=== PATIENT | female | born 1955 | race Caucasian/White ===

== ENCOUNTER 2019-05-19 08:28 | Day surgery (SDC) | payer OTHER ==
[2019-05-18 11:39] VITALS: BMI 44.9
--- NOTE | 2019-05-18 21:12 | HP ---
HISTORY OF PRESENT ILLNESS: This is a 64-year-old female, comes for colonoscopy for colon cancer screening. The patient's bowel movements are regular. No history of abdominal pain. No rectal bleeding. The patient has history of chronic acid reflux and has good symptom control with Nexium and also Zantac. The patient comes for a colonoscopy for colon cancer screening. ALLERGIES: NSAID MEDICATION. SOCIAL HISTORY: The patient quit smoking 5 years ago. Does not drink alcohol. MEDICAL ILLNESSES: 1. Obesity. 2. Cataracts. 3. Glaucoma surgery. 4. Hypothyroidism. 5. Colon polyp. 6. Chronic acid reflux. 7. Depression, anxiety. 8. ADHD. PHYSICAL EXAMINATION: VITAL SIGNS: Pulse is 73, blood pressure 130/80. EYES: Conjunctivae clear. CARDIOVASCULAR: First and second heart sounds are normal. LUNGS: Clear to auscultation. ABDOMEN: Soft. No organomegaly. No tenderness. No masses. EXTREMITIES: Reveal no edema. ADMITTING DIAGNOSIS: A 64-year-old female comes for a colonoscopy for colon cancer screening. Job ID: [id number]
--- NOTE | 2019-05-19 14:53 | OP ---
DATE OF PROCEDURE: 05/19/2019 PROCEDURE PERFORMED: Colonoscopy. PREOPERATIVE DIAGNOSIS: This is a 64-year-old female undergoing colonoscopy for colon cancer screening. POSTOPERATIVE DIAGNOSES: 1. Sigmoid diverticular disease. 2. Diverticula over the ascending colon close to cecum. DESCRIPTION OF PROCEDURE: The patient was placed on her left lateral position and was given sedation by Anesthesia Department. A rectal exam was done before the scope was advanced into the rectum. No lesions felt on rectal exam. A Pentax video colonoscope was introduced into the rectum and advanced all the way into the cecum. The patient had large amount of bilious material, which was frothy and seen mostly on the transverse colon, ascending colon area. Water was irrigated and washed out. Also, Mylicon was added to the irrigant solution because of large amount of frothy material. The mucosa appears normal throughout the colon. The appendiceal orifice, ileocecal wall, and cecum, no pathology seen. The patient had few diverticula over the cecal area. The ascending colon, hepatic flexure, no pathology seen. The transverse colon, splenic flexure, descending colon, no lesion. The sigmoid colon showed scattered diverticular disease. Retroflexion of scope in the rectum showed no pathology. DISCHARGE PLANNING: This is a 64-year-old female came for colonoscopy for colon cancer screening. She underwent colonoscopy and was found to have scattered sigmoid diverticular disease and also some diverticula over the ascending colon area. DISCHARGE RECOMMENDATIONS: 1. The patient advised to call me if she develops abdominal pain, hematochezia. 2. High-fiber diet. 3. Metamucil. 4. Repeat colonoscopy in 5 years. Job ID: [id number]
== END 2019-05-19 11:55 | disposition home or self-care (01) ==
LOC: SDC 08:28
PROVIDERS: ATTEND Internal Medicine Gastroenterology
PROC: 0DJD8ZZ Inspection of Lower Intestinal Tract, Via Natural or Artificial Opening Endoscopic (ICD-10-PCS; principal; 2019-05-19)
DX: Z12.11 Encounter for screening for malignant neoplasm of colon (principal); K57.30 Diverticulosis of large intestine without perforation or abscess without bleeding; E66.9 Obesity, unspecified; E03.9 Hypothyroidism, unspecified; K21.9 Gastro-esophageal reflux disease without esophagitis; F32.9 Major depressive disorder, single episode, unspecified; F41.9 Anxiety disorder, unspecified; F90.9 Attention-deficit hyperactivity disorder, unspecified type; Z68.41 Body mass index [BMI] 40.0-44.9, adult; Z87.891 Personal history of nicotine dependence; Z86.010 Personal history of colon polyps; Z88.6 Allergy status to analgesic agent; Z79.899 Other long term (current) drug therapy

== ENCOUNTER 2019-05-25 14:26 | Outpatient (CLI) | payer OTHER ==
--- NOTE | 2019-06-02 14:29 | MMO ---
Bilateral MAMMO Bilat Screen [facility]. CLINICAL HISTORY: Patient is 64 years old and is seen for screening. The patient has a history of right needle biopsy in 2006 - benign, right Lumpectomy in 1999 - benign and left needle biopsy in 2000 - benign. VIEWS: The views performed were: bilateral craniocaudal with tomosynthesis and bilateral mediolateral oblique with tomosynthesis. FILMS COMPARED: The present examination has been compared to prior imaging studies performed at [facility] on 08/05/2014 and 01/31/2016. MAMMOGRAM FINDINGS: The breasts are almost entirely fat. There is a biopsy clip seen in the right breast. There are no suspicious masses, suspicious calcifications, or new areas of architectural distortion. IMPRESSION: THERE IS NO MAMMOGRAPHIC EVIDENCE OF MALIGNANCY. A ROUTINE FOLLOW-UP MAMMOGRAM IN 1 YEAR IS RECOMMENDED. THE RESULTS OF THIS EXAM WERE SENT TO THE PATIENT. ACR BI-RADS Category 2 - Benign finding MAMMOGRAPHY NOTE: 1. A negative mammogram report should not delay a biopsy if a dominant of clinically suspicious mass is present. 2. Approximately 10% to 15% of breast cancers are not detected by mammography. 3. Adenosis and dense breasts may obscure an underlying neoplasm. Reported by: IFTIKHAR RIVERA MD Electonically Signed: [id number]
== END 2019-05-25 14:27 | disposition home or self-care (01) ==
LOC: BICMAMMO 14:26
PROVIDERS: ATTEND Family Medicine
DX: Z12.31 Encounter for screening mammogram for malignant neoplasm of breast (principal)
CPT/HCPCS: 77063; 77067

== ENCOUNTER 2020-10-11 14:09 | Outpatient (CLI) | payer OTHER ==
--- NOTE | 2020-10-11 14:48 | CT ---
EXAM: CT Pulmonary Lung Scan PROVIDED CLINICAL HISTORY: Nicotine dependence. Former smoker for 40 years. COMPARISON: None FINDINGS: There are 2 pleural-based nodular densities in the right middle lobe measuring 4 and 5 mm in transver se dimensions with a pleural-based nodular density posteromedial aspect right upper lobe measuring 5 mm. No additional discrete noncalcified pulmonary nodule or mass is seen. There is evidence of prior granulomatous disease with calcified right hilar lymph nodes and calcified granuloma in the right lower lobe. No pleural effusion is seen. Lack of intravenous contrast limits evaluation of vascular structures and mediastinum. No enlarged ly mph nodes are appreciated within the mediastinum on this nonenhanced CT scan exam. Minimal vascular calcifications are seen in the thoracic aorta. Postoperative changes are seen involving the stomach. Degenerative changes are seen in the spine. IMPRESSION: 1. Lung RADS category 2-subpleural subcentimeter nodules right upper lobe and right middle lobe. Cont inued annual screening with low-dose CT scan thorax in 12 months is recommended. 2. Lung RADS category S-no clinically significant or potentially clinically significant findings.
== END 2020-10-11 14:10 | disposition home or self-care (01) ==
LOC: BICCT 14:09
PROVIDERS: ATTEND Student in an Organized Health Care Education/Training Program
DX: Z12.2 Encounter for screening for malignant neoplasm of respiratory organs (principal); R91.8 Other nonspecific abnormal finding of lung field; Z80.1 Family history of malignant neoplasm of trachea, bronchus and lung
CPT/HCPCS: G0297